=== PATIENT | male | born 1960 | race Caucasian/White ===

== ENCOUNTER 2024-07-13 21:43 | Emergency (ER) | payer OTHER ==
[~2024-07-13] VITALS: Ht 175.3 cm; Wt 63.5 kg
[2024-07-13] MEDS ORDERED: HYDROMORPHONE 1 MG/1 ML DISP.SYRIN IM ONE (22:45)
[2024-07-13 23:00] LABS: BASOPHILS % (AUTO) 0.3 % (0.0-2.0); EOSINOPHILS % (AUTO) 0.3 % (0.0-7.0); HEMATOCRIT 33.5 % (36.7-47.1); HEMOGLOBIN 11.1 g/dL (12.5-16.3); LYMPHOCYTES % (AUTO) 23.9 % (20.5-51.5); MEAN CORPUSCULAR HEMOGLOBIN 28.7 uug (23.8-33.4); MEAN CORPUSCULAR HGB CONC 33 g/dL (32.5-36.3); MEAN CORPUSCULAR VOLUME 86.5 fL (73.0-96.2); MONOCYTES # (AUTO) 0.5 K/uL (0.1-1.30); MONOCYTES % (AUTO) 5.5 % (0.0-11.0); NEUTROPHILS # (AUTO) 5.8 K/uL (1.8-8.9); PLATELET COUNT (AUTO) 390 K/uL (152-348); RED BLOOD CELL COUNT(AUTO) 3.87 MIL/uL (4.06-5.63); RED CELL DISTRIBUTION WIDTH 15.2 % (12.1-16.2); WHITE BLOOD COUNT (AUTO) 8.2 K/uL (3.6-10.2)
[2024-07-13] MEDS ORDERED: ONDANSETRON ODT 4 MG TAB.RAPDIS ONE (23:25)
[2024-07-13] MEDS ORDERED: HYDROMORPHONE 1 MG/1 ML DISP.SYRIN ONE (23:26)
[2024-07-13] MEDS ORDERED: PANTOPRAZOLE SODIUM 40 MG VIAL ONE (23:26)
[2024-07-13 23:31] LABS: DIFFERENTIAL COMMENT 1
[2024-07-13 23:32] LABS: AMMONIA < 11 umol/L (11-32)
[2024-07-13] MEDS: PANTOPRAZOLE SODIUM 40 MG VIAL IV ONE (23:41)
[2024-07-13] MEDS: ONDANSETRON ODT 4 MG TAB.RAPDIS SL ONE (23:41)
[2024-07-13] MEDS: IV NORMAL SALINE 1000 ML BAG IV ONE (23:41)
[2024-07-13] MEDS: HYDROMORPHONE 1 MG/1 ML DISP.SYRIN IV ONE (23:44)
[2024-07-13 23:45] LABS: ALANINE AMINOTRANSFERASE 33 U/L (16-63); ALBUMIN 3.7 g/dL (3.4-5.0); ALKALINE PHOSPHATASE 65 U/L (50-136); ASPARTATE AMINOTRANSFERASE 22 U/L (15-37); BILIRUBIN,DIRECT 0.1 mg/dL (0.0-0.2); BILIRUBIN,TOTAL 0.4 mg/dL (0.2-1.0); CALCIUM 8.6 mg/dL (8.5-10.1); CARBON DIOXIDE 26 mmol/L (21-32); CHLORIDE 100 mmol/L (98-107); CREATININE 0.8 mg/dL (0.6-1.3); GLUCOSE 114 mg/dL (74-106); LIPASE 25 U/L (16-77); POTASSIUM 3.7 mmol/L (3.5-5.1); SODIUM SERUM 138 mmol/L (136-145); TOTAL PROTEIN, SERUM 7.5 g/dL (6.4-8.2); UREA NITROGEN, BLOOD 13 mg/dL (7-18)
[2024-07-14] MEDS ORDERED: KETOROLAC TROMETHAMINE 30 MG INJ ONE (00:24)
[2024-07-14] MEDS ORDERED: HYDR-3980 PO (00:52)
[2024-07-14] MEDS ORDERED: ONDA4TAB11 PO (00:52)
[2024-07-14] MEDS: KETOROLAC TROMETHAMINE 30 MG INJ IVP ONE (00:56)
[2024-07-14 01:24] VITALS: BP 128/88; TEMP 98.2; O2SAT 100
== END 2024-07-14 01:24 | disposition home or self-care (01) ==
LOC: ER 21:43
DX: K80.70 Calculus of gallbladder and bile duct without cholecystitis without obstruction (principal); F17.210 Nicotine dependence, cigarettes, uncomplicated
CPT/HCPCS: 99285; 96374; 76705; 96361; 96375 ×2; 99406; 80076; 80048; 82140; 83690; 85025; 85730; 36415; 74022; 93005; J1171; J2470; J1885; J7040; A4606; A4663; Q0162